=== PATIENT | male | born 1995 | race Caucasian/White ===

== ENCOUNTER → 2018-03-27 | Outpatient (CLI) | payer BC ==
--- NOTE | 2018-03-27 17:54 | RADIOLOGY IMAGING REPORT ---
[place] [facility] [place] NAME: Matt Cronin : 1995 MR: [id number] V: [id number] EXAM DATE: ORDERING PHYSICIAN: CADY KELLEY TECHNOLOGIST: Location: [facility] Patient: Matt Cronin : 1995 Visit/Account:[id number] Date of Sevice: 03/27/2018 EXAMINATION: Chest radiographs 2 views HISTORY: Reactive airways disease. Cough, fatigue and lightheadedness. COMPARISON: None. FINDINGS: PA and lateral views of the chest are submitted. Lines/tubes: None. Lungs/pleura: No focal consolidation or pleural effusion. Heart: Negative. Mediastinum: Negative. Bony structures/body wall: Negative. IMPRESSION: No radiographic evidence of acute cardiopulmonary disease. Report Dictated By: Genet Leal MD at 03/27/2018 5:50 PM Report E-Signed By: Genet Leal MD at 03/27/2018 5:51 PM WSN:[id number]
== END ==
LOC: RAD 16:50
PROVIDERS: ATTEND Family Medicine
DX: R05 Cough (principal)
CPT/HCPCS: 71046

== ENCOUNTER → 2018-03-27 | Outpatient (REF) | payer BC ==
[2018-03-27 16:43] LABS: PLATELET COUNT, AUTOMATED 242 K/uL (150-450)
== END ==
PROVIDERS: ATTEND Family Medicine
DX: R50.9 Fever, unspecified (principal)
CPT/HCPCS: 82040; 82247; 82310; 82374; 82435; 82565; 82947; 84075; 84132; 84155; 84295; 84450; 84460; 84520; 85025